=== PATIENT | male | born 1995 | race Caucasian/White ===

== ENCOUNTER 2016-08-10 13:49 | Emergency (ER) | payer BC ==
[~2016-08-10] VITALS: Ht 175.3 cm; Wt 73.0 kg
--- OUTSIDE RECORDS SUMMARY | 2016-08-10 13:57 | XMS REPORT | Continuity of Care Document ---
Author Author [facility] Organization [facility] Address Unknown Phone Unavailable Allergies Medications Problems Procedures Results Encounters ACCT No. Visit Date/Time Discharge Status Pt. Type Provider Facility Loc./Unit Complaint [id number] 09/07/2015 11:44:00 [facility]
[2016-08-10] MEDS ORDERED: SERT50TA PO (14:05)
[2016-08-10] MEDS ORDERED: LIDOCAINE/EPINEPHRINE 1%-1:100,000 (XYLOCAINE) 20ML VIAL TOP ONE (14:15)
[2016-08-10] MEDS ORDERED: LIDOCAINE 1% (XYLOCAINE) 20 ML VIAL INJ ONE (14:20)
[2016-08-10] MEDS ORDERED: BACITRACIN OINTMENT 0.9 GM PACKET TOP ONE (14:55)
[2016-08-10] MEDS ORDERED: CEPH-331 PO (15:28)
[2016-08-10 15:37] VITALS: BP 147/94
--- NOTE | 2016-08-10 15:43 | Diagnostic Imaging Report ---
CLINICAL INDICATION: Patient reports hitting the right thumb with a heavy object. EXAM: X-ray of the right first finger, 3 views. COMPARISON: None. FINDINGS: There is no evidence of an acute fracture or dislocation. There is no significant bone or joint abnormality. IMPRESSION: Unremarkable x-ray of the right thumb. Dictated by: Dictated on workstation # [id number]
== END 2016-08-10 15:42 | disposition home or self-care (01) ==
LOC: ED 13:53
DX: S69.81XA Other specified injuries of right wrist, hand and finger(s), initial encounter (principal); S61.011A Laceration without foreign body of right thumb without damage to nail, initial encounter; W20.8XXA Other cause of strike by thrown, projected or falling object, initial encounter; Y92.219 Unspecified school as the place of occurrence of the external cause
CPT/HCPCS: 99282